=== PATIENT | female | born 1965 | race Caucasian/White ===

== ENCOUNTER 2020-03-18 10:53 | Outpatient (CLI) | payer OTHER | END 2020-03-18 12:16 | disposition home or self-care (01) | LOC: SONOGRAMA 10:53 | PROVIDERS: ATTEND Pathology Anatomic Pathology & Clinical Pathology | DX: D34 Benign neoplasm of thyroid gland (principal); E04.1 Nontoxic single thyroid nodule; E04.2 Nontoxic multinodular goiter; E07.89 Other specified disorders of thyroid ==

== ENCOUNTER 2020-04-20 13:04 | Outpatient (CLI) | payer OTHER | END 2020-04-20 13:07 | disposition home or self-care (01) | LOC: LAB 13:04 | PROVIDERS: ATTEND Obstetrics & Gynecology | DX: Z00.00 Encounter for general adult medical examination without abnormal findings (principal) ==

== ENCOUNTER 2020-06-30 12:17 | Outpatient (CLI) | payer OTHER | END 2020-06-30 12:21 | disposition home or self-care (01) | LOC: LAB 12:17 | PROVIDERS: ATTEND Family Medicine | DX: M16.0 Bilateral primary osteoarthritis of hip (principal); M25.859 Other specified joint disorders, unspecified hip; R94.6 Abnormal results of thyroid function studies; M47.816 Spondylosis without myelopathy or radiculopathy, lumbar region ==

== ENCOUNTER → 2021-02-11 08:47 | Outpatient (CLI) | payer OTHER | END | disposition home or self-care (01) | LOC: LAB 08:47 | PROVIDERS: ATTEND Family Medicine | DX: K59.09 Other constipation (principal); R94.6 Abnormal results of thyroid function studies; K52.89 Other specified noninfective gastroenteritis and colitis; K63.89 Other specified diseases of intestine ==

== ENCOUNTER 2021-04-27 11:52 | Outpatient (CLI) | payer OTHER | END 2021-04-27 11:54 | disposition home or self-care (01) | LOC: LAB 11:52 | PROVIDERS: ATTEND Family Medicine | DX: E55.9 Vitamin D deficiency, unspecified (principal); E78.00 Pure hypercholesterolemia, unspecified; R42 Dizziness and giddiness; E04.1 Nontoxic single thyroid nodule; Z86.010 Personal history of colon polyps ==

== ENCOUNTER 2021-06-01 11:13 | Outpatient (CLI) | payer OTHER | END 2021-06-01 11:14 | disposition home or self-care (01) | LOC: LAB 11:13 | PROVIDERS: ATTEND Obstetrics & Gynecology | DX: N95.0 Postmenopausal bleeding (principal) ==

== ENCOUNTER 2021-06-16 13:52 | Outpatient (CLI) | payer OTHER | END 2021-06-16 13:58 | disposition home or self-care (01) | LOC: SONOGRAMA 13:52 | PROVIDERS: ATTEND Family Medicine | DX: E04.1 Nontoxic single thyroid nodule (principal) ==

== ENCOUNTER 2021-07-23 10:33 | Outpatient (CLI) | payer OTHER | END 2021-07-23 10:39 | disposition home or self-care (01) | LOC: RAD 10:33 | PROVIDERS: ATTEND Internal Medicine Gastroenterology | DX: K59.00 Constipation, unspecified (principal) ==

== ENCOUNTER → 2021-09-05 11:18 | Outpatient (CLI) | payer OTHER | END | disposition home or self-care (01) | LOC: LAB 11:18 | PROVIDERS: ATTEND Family Medicine | DX: R94.6 Abnormal results of thyroid function studies (principal); Z86.010 Personal history of colon polyps ==

== ENCOUNTER 2021-10-12 10:57 | Outpatient (CLI) | payer OTHER | END 2021-10-12 10:58 | disposition home or self-care (01) | LOC: LAB 10:57 | DX: E04.2 Nontoxic multinodular goiter (principal); R94.6 Abnormal results of thyroid function studies ==

== ENCOUNTER 2022-08-18 14:04 | Outpatient (CLI) | payer OTHER | END 2022-08-18 14:10 | disposition home or self-care (01) | LOC: RAD 14:04 | PROVIDERS: ATTEND Internal Medicine Gastroenterology | DX: K59.00 Constipation, unspecified (principal) ==